=== PATIENT | male | born 1955 | race Caucasian/White ===

== ENCOUNTER 2016-06-20 06:41 | Day surgery (SDC) | payer OTHER ==
[~2016-06-20] VITALS: Ht 162.6 cm; Wt 95.0 kg
[2016-06-20 08:13] VITALS: Ht 162.6 cm; Wt 95.0 kg
[2016-06-20] MEDS ORDERED: RAMI10CA48 PO (08:22)
[2016-06-20] MEDS ORDERED: ASP81 PO (08:22)
[2016-06-20] MEDS ORDERED: SAXA1TBM2 PO (08:22)
[2016-06-20] MEDS ORDERED: GLIM1TAB2 PO (08:22)
[2016-06-20] MEDS ORDERED: ROSU5TAB5 PO (08:22)
[2016-06-20] MEDS ORDERED: METF-382 PO (08:22)
[2016-06-20 08:30] VITALS: BP 132/78; PULSE 68; RESP 19
[2016-06-20 09:20] VITALS: BP 138/91; PULSE 64; RESP 13
[2016-06-20 10:15] VITALS: BP 117/54; PULSE 62; RESP 21
--- NOTE | 2016-06-20 17:02 | GILP ---
DATE OF PROCEDURE: 06/20/2016 NAME OF PROCEDURE: Colonoscopy and biopsy. SURGEON: Armen Harrell MD PREOPERATIVE DIAGNOSIS: Screening colonoscopy. POSTOPERATIVE DIAGNOSES: 1. Colonoscopy all the way to the cecum. 2. Sigmoid colon polyp was removed using the biopsy forceps. 3. Internal hemorrhoids. INDICATION FOR THE PROCEDURE: Mr. Chavez Smith is a 60-year-old male patient who was scheduled for screening colonoscopy. The procedure and possible complications were well explained to the patient. The patient understood and consented to the procedure. DESCRIPTION OF PROCEDURE: Under the influence of anesthesia, the colonoscope was carefully introduc ed in the rectum and under direct vision, it was advanced all the way to the cecum. FINDINGS: The patient had a sigmoid colon polyp and it was removed using the biopsy forceps. He wa s noted to have internal hemorrhoids. He tolerated the procedure very well and there was no complication from the procedure. At the end o f the procedure, he was awake with stable vital signs and he was discharged home to the care of his family. IMPRESSION: 1. Colonoscopy all the way to the cecum. 2. Internal hemorrhoids. 3. The patient had a sigmoid polyp and it was removed using the biopsy forceps. PLAN: 1. Await histopathology report. 2. Next screening colonoscopy in 10 years. Dictated By: ARMEN THOMPSON/CARMEN Conf#: [id number] DID#: [id number] CC: ARMEN HARRELL MD;*EndCC*
== END 2016-06-20 10:03 | disposition home or self-care (01) ==
LOC: GIL 06:41
PROVIDERS: ATTEND Internal Medicine Gastroenterology
DX: Z12.11 Encounter for screening for malignant neoplasm of colon (principal); D12.5 Benign neoplasm of sigmoid colon; K64.8 Other hemorrhoids; E11.9 Type 2 diabetes mellitus without complications; I10 Essential (primary) hypertension
CPT/HCPCS: 82962; 88305